=== PATIENT | male | born 1955 | race Caucasian/White ===

== ENCOUNTER 2018-07-08 21:52 | Emergency (ER) | payer BC ==
[~2018-07-08] VITALS: Ht 180.3 cm; Wt 80.0 kg
[2018-07-08 21:55] VITALS: BP 188/82; TEMP 97
[2018-07-08 22:29] LABS: BASO % 0.3 % (0.0-2.0); EOS # 0.2 (0.0-0.7); EOS % 1.7 % (0-4.0); GRAN # 8.3 (1.4-6.5); HEMATOCRIT 46.1 % (42.0-52.0); HEMOGLOBIN 15.3 g/dl (13.5-18.0); LYMPH # 1.5 (1.2-3.4); LYMPH % 13.3 % (20.0-51.0); MEAN CELL VOLUME 95 fl (80.0-100.0); MEAN CORPUSCULAR HEMOGLOBIN 31 pg (27.0-31.0); MEAN CORPUSCULAR HGB CONC 33 g/dl (33.0-37.0); MEAN PLATELET VOLUME 10.3 fl (7.4-10.4); MONO # 0.9 (0.1-0.6); MONO % 8.4 % (1.7-9.3); PLATELET COUNT 167 K/mm3 (130-400); RED BLOOD COUNT 4.88 M/mm3 (4.20-5.60); REDCELL DISTRIBUTION WIDTH-CV 12.1 % (11.5-14.5)
[2018-07-08 22:39] LABS: ALBUMIN 3.7 gm/dL (3.5-5.0); BILIRUBIN,TOTAL 0.2 mg/dL (0.0-1.0); CALCIUM 8.7 mg/dL (8.4-10.2); CREATININE, serum 0.98 mg/dL (0.66-1.25); POTASSIUM 4.2 mmol/L (3.4-5.0); TOTAL PROTEIN 6.8 gm/dL (6.4-8.2)
[2018-07-08 22:42] LABS: COLLECTION METHOD CLEAN CATCH
[2018-07-08] MEDS ORDERED: LEVAQUIN 750MG750 M1 PO (22:49)
[2018-07-08] MEDS ORDERED: FLOMAX 0.40.4 MG/CAP PO (22:49)
[2018-07-08 22:51] LABS: MUCOUS Present /lpf; PH 5 (5-8); SQUAMOUS EPITHELIAL 0-2 /hpf; URINE APPEARANCE Cloudy; URINE BACTERIA Rare /hpf; URINE BILIRUBIN Negative (NEGATIVE); URINE BLOOD 3+ (NEGATIVE); URINE COLOR Yellow; URINE GLUCOSE 1+ (NEGATIVE); URINE KETONE Negative (NEGATIVE); URINE LEUKOCYTE ESTERASE 3+ (NEGATIVE); URINE NITRATE Negative (NEGATIVE); URINE PROTEIN(semi-quant) 2+ (NEGATIVE); URINE RBC >50 /hpf; URINE UROBILINOGEN Negative (NEGATIVE)
[2018-07-08 23:06] VITALS: PULSE 69
[2018-07-11] MEDS ORDERED: OMNICEF 300MG300 MG PO (12:39)
== END 2018-07-08 23:07 | disposition home or self-care (01) ==
LOC: COL.ER 21:52
PROVIDERS: Emergency Medicine
DX: N30.90 Cystitis, unspecified without hematuria (principal); N47.1 Phimosis

== ENCOUNTER 2024-03-28 08:49 | Inpatient (IN) | payer MEDICARE, OTHER ==
[~2024-03-28] VITALS: Ht 180.3 cm; Wt 79.0 kg
[~2024-03-28 08:49] MED LIST: FLOMAX 0.40.4 MG/CAP PO; LEVAQUIN 750MG750 M1 PO; OMNICEF 300MG300 MG PO
[2024-03-28] MEDS ORDERED: NS 1,000 ML IV ONE ×2 (09:30→10:15)
[2024-03-28 09:35] LABS: HEMATOCRIT 45.9 % (42.0-52.0); MEAN CELL VOLUME 96 fl (80.0-100.0); MEAN CORPUSCULAR HEMOGLOBIN 31 pg (27-31); MEAN CORPUSCULAR HGB CONC 33 g/dl (33.0-37.0); MEAN PLATELET VOLUME 11.4 fl (7.4-10.4); PLATELET COUNT 178 K/mm3 (130-400); RED BLOOD COUNT 4.79 M/mm3 (4.20-5.60); REDCELL DISTRIBUTION WIDTH-CV 12.8 % (11.5-14.5)
[2024-03-28 09:49] LABS: ERYTHROCYTE SEDIMENTATION RATE 50 mm/hr (0-30)
[2024-03-28 09:57] LABS: BILIRUBIN,TOTAL 0.5 mg/dL (0.2-1.2); C-REACTIVE PROTEIN 7.65 mg/dL (0.00-0.50); CREATININE, serum 1.01 mg/dL (0.72-1.25); POTASSIUM 4.2 mEq/L (3.5-4.5); TOTAL PROTEIN 7.2 g/dl (6.2-8.1)
[2024-03-28 10:26] LABS: COLLECTION METHOD CLEAN CATCH
[2024-03-28 10:33] LABS: URINE APPEARANCE CLEAR (CLEAR/HAZY); URINE BLOOD NEGATIVE (NEGATIVE); URINE COLOR YELLOW (YELLOW); URINE GLUCOSE NEGATIVE (NEGATIVE); URINE KETONE NEGATIVE (NEGATIVE); URINE NITRATE NEGATIVE (NEGATIVE); URINE PROTEIN(semi-quant) NEGATIVE (NEGATIVE); URINE UROBILINOGEN 0.2 E.U/dL (0.2-1.0)
--- NOTE | 2024-03-28 11:59 | NUR ---
Vancomycin Initial Dosing Pharmacy Note Ordering provider: Siddhartha Fox MD Indication/duration: cellulitits, 5 days LABS: SCr 1.01, CrCl~63, GFR 81 Recommendation: Will start Vancomycin 1.25 gm IV q12h. Pharmacy will continue to closely monitor and check a trough on 03/30/24. Maintenance dose: 1.25 grams every 12 hours Trough goal: 10-15 ug/mL
[2024-03-28] MEDS ORDERED: *Potassium Replacement Protocol MC SCH (12:00)
[2024-03-28 12:01] VITALS: BP 161/78; PULSE 69; TEMP 98.5
--- NOTE | 2024-03-28 12:01 | NUR ---
Patient arrived to the medica unit by wheelchair, room 351. Alert and oriented x4, Rating pain 2-3/10.
[2024-03-28] MEDS ORDERED: Vancomycin 1.25 GM,Special Dose/Pharmacy Prepared 1.25 GM in NS 250 ML IV SCH (12:30)
[2024-03-28] MEDS ORDERED: Acetaminophen 325 MG TAB PO PRN (13:00)
[2024-03-28 13:41] VITALS: BP_SYST 161
[2024-03-28] MEDS ORDERED: Lisinopril 5 MG TAB PO SCH (14:23)
[2024-03-28 16:13] VITALS: BP_SYST 161
[2024-03-28 16:17] VITALS: BP 129/75; PULSE 76; TEMP 98.4
[2024-03-28 20:04] VITALS: BP 167/77; PULSE 78; TEMP 97.8
[2024-03-28 20:30] VITALS: BP_SYST 167
--- NOTE | 2024-03-28 20:30 | NUR ---
UPON SHIFT ASSESSMENT, TIARA WAS AWAKE IN BED, PLEASANT AND A&O X 4. RT UPPER EXTREMITY CELLULITIS IS MARKED AND ERYTHEMA HAS NOT GONE BEYOND MARKED AREAS. HE HAS GOOD DISTAL PULSES AND SENSATION IN THE AFFECTED EXTREMITY. VS ARE WNL AND TELE IS NS. PATIENT REQUEST TYLENOL FOR 10/24. TYLENOL AND ICE PACK ADMINISTERED. CALL LIGHT WITHIN REACH.
[2024-03-29] VITALS (13 sets, daily range): BP systolic 128–148; BP diastolic 67–79; PULSE 65–84; TEMP 97.8–99.8
--- NOTE | 2024-03-29 00:30 | NUR ---
PATIENT LT AC IV INFILTERATED. THIS NURSE AND CHARGE NURSE, AMPARO BOTH ATTEMPTED TO OBTAIN NEW IV SITE UNSUCESSFULLY. COMPTOMETRIST CALLED AND NEW LT FOREARM IV [address] BY TITA.
[2024-03-29 09:16] LABS: HEMATOCRIT 41.4 % (42.0-52.0); MEAN CELL VOLUME 94 fl (80.0-100.0); MEAN CORPUSCULAR HEMOGLOBIN 32 pg (27-31); MEAN CORPUSCULAR HGB CONC 34 g/dl (33.0-37.0); PLATELET COUNT 274 K/mm3 (130-400); REDCELL DISTRIBUTION WIDTH-CV 12.5 % (11.5-14.5)
[2024-03-29] MEDS ORDERED: TRIAMC 0.1 454 TOP (09:30)
--- NOTE | 2024-03-29 09:30 | NUR ---
Assessment complete. Tylenol administered for c/o pain to RFA. Rates pain 3/10.
[2024-03-29 09:31] LABS: CALCIUM 8.6 mg/dL (8.4-10.2); CREATININE, serum 0.98 mg/dL (0.72-1.25); PHOSPHOROUS 2.5 mg/dL (2.3-4.7); POTASSIUM 4.2 mEq/L (3.5-4.5)
[2024-03-29] MEDS ORDERED: DOXYCYCLINE 10100 MG PO (09:31)
[2024-03-29] MEDS ORDERED: MOBIC15 MG PO (09:32)
[2024-03-29 09:42] LABS: ALBUMIN 2.7 g/dL (3.4-4.8)
[2024-03-29] MEDS ORDERED: CALAMINE TP PRN (10:00)
[2024-03-29] MEDS ORDERED: ZINC OXIDE TP PRN (10:00)
[2024-03-29 10:19] LABS: BAND 4 % (0-10); EOSINOPHIL 4 % (0-4); LYMPHOCYTE 12 % (20.0-51.0); NEUTROPHILS 71 % (42.0-75.2)
[2024-03-29 10:21] LABS: METAMYELOCYTE 2 % (0-0); PLATELET ESTIMATE NORMAL (NORMAL)
--- NOTE | 2024-03-29 10:41 | NUR ---
Initial visit; Patient thanked Psych Therapist for looking in on him and offering God's blessings and to keep him in her prayers.
--- NOTE | 2024-03-29 13:31 | NUR ---
Patient IV will not flush. Attempt x2 by ALLISON Schulz unsuccessful. Contacted [facility] to request IV start. Pt instructed to not pick at the skin on his RFA or to itch it. Calamine lotion applied to assist with itching.
--- NOTE | 2024-03-29 14:40 | NUR ---
[facility] started #20g to RH. Vancomycin administered. Pt denies pain or needs at this time. Reports calamine lotion is effective for itching.
--- NOTE | 2024-03-29 15:17 | NUR ---
Bedside report given to ALLISON Polo.
--- NOTE | 2024-03-29 15:49 | NUR ---
Winemaker met with patient to discuss discharge planning. Patient lives in [place], [place] with his mother, Dorcas who is 103. 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 Patient does not have a PCP at this time but stated he is working on getting set up with the primary care clinic in [place], [place]. Patient uses [facility] for medications and does not use any DME. Patient does not have DPOA-[facility] but was interested in reviewing the form, which SW provided. Patient plans to return home at time of discharge. Discharge Plan: Home
--- NOTE | 2024-03-29 20:00 | NUR ---
Pt. requesting tylenol. Denies pain but endorses "discomfort" to RUE. PRN Tylenol and scheduled meds administered per SEP. Shift assessment complete. Rt. forearm is redenned and edemetous. Redenned area was outlined by previous shifts and does not extend past previous outline at this time. Pt. states swelling to Rt. hand has subsided compared to yesterday and states redness has improved as well. No further outstanding findings. Pt. has visitor at bedside. Call light in reach. No further requests or complaints at this time.
[2024-03-30] VITALS (11 sets, daily range): BP systolic 115–150; BP diastolic 64–78; PULSE 63–73; TEMP 97.8–98.9
--- NOTE | 2024-03-30 05:08 | NUR ---
Pt. continues to report improvement with RUE, both in appearance and sensation. Discomfort from beginning of shift subsided w/ single dose of PRN tylenol. Pt. appears optimistic and excited about his progress since being admitted. Pt. denies complaints or requests at this time. Call light in reach.
[2024-03-30 06:31] LABS: HEMATOCRIT 38.1 % (42.0-52.0); HEMOGLOBIN 12.7 g/dl (13.5-18.0); MEAN CELL VOLUME 95 fl (80.0-100.0); MEAN CORPUSCULAR HEMOGLOBIN 32 pg (27-31); MEAN CORPUSCULAR HGB CONC 33 g/dl (33.0-37.0); MEAN PLATELET VOLUME 10.1 fl (7.4-10.4); PLATELET COUNT 285 K/mm3 (130-400); RED BLOOD COUNT 4.02 M/mm3 (4.20-5.60); REDCELL DISTRIBUTION WIDTH-CV 12.6 % (11.5-14.5)
[2024-03-30 06:59] LABS: ALBUMIN 2.4 g/dL (3.4-4.8); CALCIUM 8.1 mg/dL (8.4-10.2); CREATININE, serum 0.97 mg/dL (0.72-1.25); MAGNESIUM 2.1 mg/dL (1.6-2.6); PHOSPHOROUS 3.3 mg/dL (2.3-4.7); POTASSIUM 4.1 mEq/L (3.5-4.5)
[2024-03-30 07:48] LABS: BAND 2 % (0-10); EOSINOPHIL 1 % (0-4); LYMPHOCYTE 16 % (20.0-51.0); NEUTROPHILS 75 % (42.0-75.2); PLATELET ESTIMATE NORMAL (NORMAL)
--- NOTE | 2024-03-30 08:10 | NUR ---
Assessment complete. Pt resting in bed. A/O x4. RFA cleansed with soap and water. Calamine lotion applied to area. Reports pain 2/10. Tylenol administered for c/o pain. Independent in room. Denies needs at this time.
[2024-03-30] MEDS ORDERED: Cetirizine 10 MG TAB PO SCH (10:57)
[2024-03-30] MEDS ORDERED: Famotidine 20 MG TAB PO SCH (10:58)
--- NOTE | 2024-03-30 12:52 | NUR ---
Pt sitting up in chair watching tv. Reports back pain 09/23. Tylenol administered po. Encouraged patient to ambulate in hallway this afternoon and evening. Pt agreeable. Denies any other needs at this time.
[2024-03-30] MEDS ORDERED: hydrOXYzine HCl 25 MG TAB PO SCH (13:00)
--- NOTE | 2024-03-30 13:06 | NUR ---
Bedside report given to ALLISON Collier.
--- NOTE | 2024-03-30 17:00 | NUR ---
Patient awake, alert and oriented. Denies pain currently, states his arm is mildly itchy. States he feels a little drowsy after starting atarax today. Steady on feet in room, bed in lowest position with call light within reach. Denies further needs at this time.
[2024-03-30] MEDS ORDERED: Linezolid 600 MG TAB PO SCH (21:00)
--- NOTE | 2024-03-30 21:15 | NUR ---
Pt. requesting Tylenol with 2100 meds at bedside shift report; reports pain is 2/10 which he states is tolerable. Scheduled meds and PRN Tylenol administered per SEP. Shift assessment complete. Rt forearm is edemetous pitting +1. Forearm is reddened and itchy. Pt. reports swelling, redness, and itching all continue to improve. No further outstanding findings at this time. Gently cleansed Rt. forearm of dried calamine per pt. requests. No further requests or complaints. Call light in reach.
[2024-03-31 01:00] VITALS: BP_SYST 127
[2024-03-31 03:33] VITALS: BP 121/70; PULSE 62; TEMP 97.6
[2024-03-31 05:04] VITALS: BP_SYST 121
--- NOTE | 2024-03-31 05:15 | NUR ---
Pt. rested soundly through the night with eyes closed; respirations even and unlabored. VSS. Pt. denied complaints or requests through the night. He hopes to go home today and believes his condition is improving. This nurse can attest that swelling to Rt. forearm does look improved since previous NOC shift with patient. Pt. currently resting in bed w/ call light in reach.
--- NOTE | 2024-03-31 07:00 | NUR ---
Assessment completed. Resting in bed upon entering room. Denies pain or needs at this time.
[2024-03-31 07:18] VITALS: BP 129/76; PULSE 66; TEMP 97.8
[2024-03-31 08:04] LABS: HEMATOCRIT 42.9 % (42.0-52.0); MEAN CELL VOLUME 94 fl (80.0-100.0); MEAN CORPUSCULAR HEMOGLOBIN 32 pg (27-31); MEAN CORPUSCULAR HGB CONC 34 g/dl (33.0-37.0); MEAN PLATELET VOLUME 9.6 fl (7.4-10.4); PLATELET COUNT 332 K/mm3 (130-400); RED BLOOD COUNT 4.58 M/mm3 (4.20-5.60); REDCELL DISTRIBUTION WIDTH-CV 12.4 % (11.5-14.5)
[2024-03-31 08:12] LABS: ALBUMIN 2.8 g/dL (3.4-4.8); CALCIUM 8.6 mg/dL (8.4-10.2); CREATININE, serum 1.08 mg/dL (0.72-1.25); MAGNESIUM 2.3 mg/dL (1.6-2.6); POTASSIUM 4.4 mEq/L (3.5-4.5)
[2024-03-31 08:30] LABS: HEMOGLOBIN 14.7 g/dl (13.5-18.0)
[2024-03-31] MEDS ORDERED: ZYRTEC 10MG10 MG PO (09:03)
[2024-03-31] MEDS ORDERED: ZESTRIL 5MG5 MG PO (09:04)
[2024-03-31] MEDS ORDERED: ZYVOX 600MG600 MG PO (09:04)
[2024-03-31] MEDS ORDERED: ATARAX 25MG25 MG/TAB PO (09:05)
[2024-03-31] MEDS ORDERED: CALAMINE TP (09:06)
[2024-03-31] MEDS ORDERED: PEPCID 20MG TAB20 MG PO (09:07)
--- NOTE | 2024-03-31 09:20 | NUR ---
Tylenol adminsitered for c/o back pain.
[2024-03-31 09:24] VITALS: BP_SYST 129
[2024-03-31 10:31] LABS: BASOPHIL 1 % (0-2); EOSINOPHIL 1 % (0-4); LYMPHOCYTE 33 % (20.0-51.0); NEUTROPHILS 61 % (42.0-75.2); PLATELET ESTIMATE NORMAL (NORMAL)
--- NOTE | 2024-03-31 11:10 | NUR ---
Discharge instructions reviewed with patient- verbalizes understanding. INT d/c'd with cath tip intact. Tele d/c'd. Pt escorted to private vehicle and discharged home by private vehicle.
== END 2024-03-31 11:10 | disposition home or self-care (01) | DRG 603 ==
LOC: COL.ER 08:49 → MEDICAL 10:26
PROVIDERS: Family Medicine; ADMIT Internal Medicine
DX: L03.113 Cellulitis of right upper limb (principal); G89.29 Other chronic pain; M54.9 Dorsalgia, unspecified; I10 Essential (primary) hypertension; L25.9 Unspecified contact dermatitis, unspecified cause
CPT/HCPCS: J0737; J1650; J3370; J7030; J7050